=== PATIENT | female | born 1975 | race Hispanic/Latino ===

== ENCOUNTER → 2023-06-05 | Outpatient (CLI) | payer OTHER ==
[2023-06-05 15:48] LABS: HEMATOCRIT(ML) 26.5 % (36.0-46.0); HEMOGLOBIN 7.4 g/dL (12.0-15.0); MEAN CORP HGB 18.9 pg (26-34); MEAN CORP HGB CONCENTRATION 27.9 g/dL (33-36.5); MEAN CORP VOLUME 67.6 fL (78-100); PLATELET COUNT 405 10^3/uL (150-400); RED BLOOD CELL 3.92 10^6/uL (4.00-5.20); RED CELL DISTRIBUTION WIDTH 26.1 % (11.5-14.5); WHITE BLOOD CELL 6.6 10^3/uL (4.5-11.0)
[2023-06-05 17:33] LABS: ANISOCYTOSIS 1+ (NEGATIVE); HYPOCHROMIA 1+ (NEGATIVE); POIKILOCYTOSIS 1+ (NEGATIVE)
== END | disposition home or self-care (01) ==
LOC: LAB 15:28
PROVIDERS: ATTEND Nurse Practitioner Women's Health
DX: R53.83 Other fatigue (principal); N93.9 Abnormal uterine and vaginal bleeding, unspecified
CPT/HCPCS: 36415; 83036; 84439; 84443; 85027

== ENCOUNTER → 2023-06-21 | Outpatient (CLI) | payer OTHER | END | disposition home or self-care (01) | LOC: RAD 10:24 → EDUNIT# 11:00 | PROVIDERS: ATTEND Nurse Practitioner Women's Health | DX: N93.9 Abnormal uterine and vaginal bleeding, unspecified (principal); R93.89 Abnormal findings on diagnostic imaging of other specified body structures; D25.9 Leiomyoma of uterus, unspecified | CPT/HCPCS: 76830; 76856; 93976 ==

== ENCOUNTER → 2023-06-23 | Outpatient (CLI) | payer OTHER ==
[2023-06-23 10:59] LABS: HEMATOCRIT(ML) 35.3 % (36.0-46.0); HEMOGLOBIN 10.4 g/dL (12.0-15.0); MEAN CORP HGB CONCENTRATION 29.5 g/dL (33-36.5); MEAN CORP VOLUME 74.8 fL (78-100); PLATELET COUNT 401 10^3/uL (150-400); RED BLOOD CELL 4.72 10^6/uL (4.00-5.20); WHITE BLOOD CELL 5.9 10^3/uL (4.5-11.0)
[2023-06-23 13:05] LABS: ANISOCYTOSIS 1+ (NEGATIVE); HYPOCHROMIA 1+ (NEGATIVE)
== END | disposition home or self-care (01) ==
LOC: LAB 10:31
PROVIDERS: ATTEND Nurse Practitioner Women's Health
DX: D64.9 Anemia, unspecified (principal)
CPT/HCPCS: 36415; 85027